=== PATIENT | female | born 1950 | race Caucasian/White ===

== ENCOUNTER 2018-03-21 10:06 | Inpatient (IN) ==
--- NOTE | 2018-03-21 10:30 | ED ---
HPI General Chief Complaint: Dizziness Stated Complaint: left arm pain and dizziness Time Seen by Provider: 03/21/18 10:27 Source: patient Mode of arrival: ambulatory Limitations: no limitations History of Present Illness HPI Narrative: 67-year-old female patient with previous history of hypertension presents to the ER today because this morning she started having pains in the back of her left arm that started on its own and then started having dizziness. She denies chest pains, nausea, shortness of breath, or other symptoms. The left arm pain started on its own, and does not hurt when she moves it. She states that the left arm pain is improving it is now rated a 2 out of 10. Related Data Home Medications Medication Instructions Recorded Confirmed Move Free Joint Health 1 tab PO DAILY 03/21/18 03/21/18 alprazolam 0.25 mg PO DAILY PRN 03/21/18 03/21/18 carvedilol 25 mg PO BID 03/21/18 03/21/18 cyanocobalamin (vitamin B-12) 1,000 mcg PO DAILY 03/21/18 03/21/18 [Vitamin B-12] docusate sodium [Stool Softener] 50 mg PO DAILY 03/21/18 03/21/18 furosemide 20 mg PO DAILY 03/21/18 03/21/18 multivitamin 1 cap PO DAILY 03/21/18 03/21/18 pantoprazole 40 mg PO DAILY 03/21/18 03/21/18 potassium chloride 10 meq PO DAILY 03/21/18 03/21/18 tramadol 50 mg PO BID PRN 03/21/18 03/21/18 Allergies Allergy/AdvReac Type Severity Reaction Status Date / Time lansoprazole Allergy Intermediate RASH Unverified 12/28/16 17:28 bacitracin Allergy Mild RASH Unverified 12/28/16 17:28 gramicidin D Allergy Mild RASH Unverified 12/28/16 17:28 neomycin Allergy Mild RASH Unverified 12/28/16 17:28 polymyxin B Allergy Mild RASH Unverified 12/28/16 17:28 THERMASOL Allergy Unknown Flushing Uncoded 03/21/18 10:14 Review of Systems ROS: all other systems reviewed are negative PMFSH History History Provided By: Patient Medical History Medical History Anxiety (Acute) Chronic pain (Acute) GERD (gastroesophageal reflux disease) (Acute) Hiatal hernia (Acute) H/O: hysterectomy (Acute) HTN (hypertension) (Acute) Surgical History Surgical History H/O breast biopsy (Acute) History of appendectomy (Acute) Social History Social History Substance History: No History of Abuse Smoking Status: Former smoker How Often Do You Have a Drink Containing Alcohol: 4 or more times a week Recent Travel in [facility] within the Last 8 Weeks: No Recent Out of Country Travel within the Last 8 Weeks: No Exam Narrative Exam Narrative: GENERAL: Well-developed elderly female patient currently in mild distress. Awake and oriented x3. SKIN: Focused skin assessment warm/dry. HEAD: Atraumatic. Normocephalic. EYES: Pupils equal and round. No scleral icterus. No injection or drainage. ENT: No nasal bleeding or discharge. Mucous membranes pink and moist. NECK: Trachea midline. No JVD. Supple. CARDIOVASCULAR: Regular rate and rhythm. No murmur appreciated. RESPIRATORY: No accessory muscle use. Clear to auscultation. Breath sounds equal bilaterally. GASTROINTESTINAL: Abdomen soft, non-tender, nondistended. Hepatic and splenic margins not palpable. MUSCULOSKELETAL: No obvious deformities. No clubbing. No cyanosis. No edema. NEUROLOGICAL: Awake and alert. No obvious cranial nerve deficits. Motor grossly within normal limits. Normal speech. PSYCHIATRIC: Appropriate mood and affect; insight and judgment normal. Course Initial Documented Vital Signs Temperature 98.2 F 03/21/18 10:11 Pulse Rate 71 03/21/18 10:11 Respiratory Rate 16 03/21/18 10:11 Blood Pressure 188/91 H 03/21/18 10:11 Pulse Oximetry 96 03/21/18 10:11 Last Documented Vital Signs Temperature 98.2 F 03/21/18 10:11 Pulse Rate 74 03/21/18 10:50 Respiratory Rate 17 03/21/18 10:50 Blood Pressure 156/82 H 03/21/18 10:50 Pulse Oximetry 95 03/21/18 10:50 Medical Decision Making MDM Narrative Medical decision making narrative: EKG did not show any acute ST changes or dysrhythmias. She has no focal neurological deficit on exam. She does have history of hypertension and with age, I am concerned that this could be a cardiac chest pain that is atypically presenting. She was given an additional dose of aspirin in the ER. Patient's blood pressure is fairly elevated as well and that she will need better control. At this point, my plan would be to admit her to chest pain center for further evaluation of her heart. Case is discussed with PA for hospitalist service and they are asking also CAT scan of the brain just to rule out any acute intracranial processes as a cause of the dizziness. Medical Screen Exam Complete: Yes Emergency Medical Condition: Yes Differential Diagnosis Differential Diagnosis: ACS anginal equivalent versus muscular skeletal versus dysrhythmias Lab Data Lab results reviewed: Yes I reviewed the patient's lab results. Result diagrams: 03/21/18 10:28 03/21/18 10:28 Lab Results 03/21/18 03/21/18 Range/Units 10:28 10:28 CBC w Diff Auto diff final WBC 4.0 (4.0-11.0) th/mm3 RBC 4.33 (4.00-5.30) mil/mm3 Hgb 13.7 (11.6-15.3) gm/dL Hct 40.1 (35.0-46.0) % MCV 92.7 (80.0-100.0) fL MCH 31.7 (27.0-34.0) pg MCHC 34.2 (32.0-36.0) % RDW 13.3 (11.6-17.2) % Plt Count 167 (150-450) th/mm3 MPV 7.4 (7.0-11.0) fL Neut % (Auto) 66.4 (16.0-70.0) % Lymph % (Auto) 21.7 (9.0-44.0) % [place] % (Auto) 9.6 H (0.0-8.0) % Eos % (Auto) 1.2 (0.0-4.0) % Baso % (Auto) 1.1 (0.0-2.0) % Neut # (Auto) 2.7 (1.8-7.7) th/mm3 Lymph # (Auto) 0.9 L (1.0-4.8) th/mm3 [place] # (Auto) 0.4 (0.0-0.9) th/mm3 Eos # (Auto) 0.0 (0.0-0.4) th/mm3 Baso # (Auto) 0.0 (0.0-0.2) th/mm3 WBC Differential . Differential Comment . Sodium 139 (136-145) meq/L Potassium 4.0 (3.5-5.1) meq/L Chloride 102 (98-107) meq/L Carbon Dioxide 29.3 (21.0-32.0) meq/L Anion Gap 8 (5-15) meq/L BUN 10 (7-18) mg/dL Creatinine 0.63 (0.50-1.00) mg/dL Estimated GFR Greater than 89 (>89) mL/min Random Glucose 119 H (74-106) mg/dL Calcium 9.1 (8.5-10.1) mg/dL Troponin I Less than 0.02 L (0.02-0.05) ng/mL Imaging Data Attestation: I personally reviewed and interpreted this imaging study as follows : Radiologist's impression: Chest X-Ray 03/21/18 10:27 CONCLUSION: 1. No significant change. No acute cardiopulmonary disease. 2. Moderate to large hiatal hernia again noted. ECG Data Attestation: I personally reviewed and interpreted this ECG as follows: Interpretation: EKG shows NSR, no ST elevation or depression, and no arrhythmias. No significant T-wave inversions. Discharge Plan Discharge Disposition Patient Disposition: 30 Still Patient Discharge Condition Condition: Stable Discharge Details Anticipated Discharge Date: 03/21/18 Diagnosis: Dizziness, Atypical chest pain Physicians Team ED Provider: Angel Luis Shearer Primary Care Provider: Pedro Garcia Rxs /Orders / Referrals /Forms Prescriptions: No Action furosemide 40 mg Tablet 20 mg PO DAILY RF: 0 carvedilol 25 mg Tablet 25 mg PO BID RF: 0 potassium chloride 10 mEq Capsule, Extended Release 10 meq PO DAILY RF: 0 cyanocobalamin (vitamin B-12) [Vitamin B-12] 1,000 mcg Tablet 1,000 mcg PO DAILY RF: 0 docusate sodium [Stool Softener] 50 mg Capsule 50 mg PO DAILY RF: 0 tramadol 50 mg Tablet 50 mg PO BID PRN (Reason: Pain) RF: 0 alprazolam 0.25 mg Tablet 0.25 mg PO DAILY PRN (Reason: Anxiety) RF: 0 pantoprazole 40 mg Tablet,Delayed Release (Dr/Ec) 40 mg PO DAILY RF: 0 multivitamin Capsule 1 cap PO DAILY RF: 0 Move Free Joint Health 1 tab PO DAILY RF: 0 Discharge Interventions Interventions: Vital Signs Last Done: 03/21/18 10:50 Status ED Status: With Doctor
[2018-03-21 10:49] LABS: Baso % (Auto) 1.1 % (0.0-2.0); Eos % (Auto) 1.2 % (0.0-4.0); Hematocrit 40.1 % (35.0-46.0); Hemoglobin 13.7 gm/dL (11.6-15.3); Lymph # (Auto) 0.9 th/mm3 (1.0-4.8); Lymph % (Auto) 21.7 % (9.0-44.0); Mean Corpuscular HGB Conc 34.2 % (32.0-36.0); Mean Corpuscular Hemoglobin 31.7 pg (27.0-34.0); Mean Corpuscular Volume 92.7 fL (80.0-100.0); Mean Platelet Volume 7.4 fL (7.0-11.0); Mono # (Auto) 0.4 th/mm3 (0.0-0.9); Mono % (Auto) 9.6 % (0.0-8.0); Neut # (Auto) 2.7 th/mm3 (1.8-7.7); Neut % (Auto) 66.4 % (16.0-70.0); Platelet Count 167 th/mm3 (150-450); Red Blood Count 4.33 mil/mm3 (4.00-5.30); Red Cell Distribution Width 13.3 % (11.6-17.2)
[2018-03-21 11:01] LABS: Chloride 102 meq/L (98-107); Sodium 139 meq/L (136-145)
[2018-03-21 11:03] LABS: Calcium 9.1 mg/dL (8.5-10.1)
[2018-03-21 11:04] LABS: Anion Gap 8 meq/L (5-15); Blood Urea Nitrogen 10 mg/dL (7-18); Carbon Dioxide 29.3 meq/L (21.0-32.0); Glucose,Random 119 mg/dL (74-106)
[2018-03-21 11:07] LABS: Glomerular Filtration Rate Greater Than 89 mL/min (>89)
--- NOTE | 2018-03-21 11:28 | XR ---
EXAM DATE: 03/21/2018 11:15 AM EST AGE/SEX: 67 years / Female INDICATIONS: Left arm pain, dizziness. CLINICAL DATA: This is the patient's initial encounter. Patient reports that signs and symptoms have been present for 2 days and indicates a pain score of 0/10. MEDICAL/SURGICAL HISTORY: Hypertension. None. COMPARISON: [facility], XR CHEST PA AND LAT, 08/05/2016. . FINDINGS: A single AP view of the chest demonstrates the lungs to be symmetrically aerated without evidence of mass, infiltrate or effusion. There is moderate to large retrocardiac hiatal hernia again noted. The cardiomediastinal contours are unremarkable. Osseous structures are intact. CONCLUSION: 1. No significant change. No acute cardiopulmonary disease. 2. Moderate to large hiatal hernia again noted. Electronically signed by: Delgado Bran MD 03/21/2018 11:27 AM EST
[2018-03-21] MEDS ORDERED: Morphine Inj 4 MG/ML Vial IV.PUSH PRN (11:52)
[2018-03-21] MEDS ORDERED: ALPRAZolam 0.25 MG Tablet PO PRN (11:54)
--- NOTE | 2018-03-21 12:16 | CT ---
EXAM DATE: 03/21/2018 12:12 PM EST AGE/SEX: 67 years / Female INDICATIONS: Dizziness and left arm pain. CLINICAL DATA: This is the patient's initial encounter. Patient reports that signs and symptoms have been present for 1 day and indicates a pain score of 2/10. MEDICAL/SURGICAL HISTORY: Gastroesophageal reflux disease. Hypertension. Hiatal hernia. Hysterect griselda. Appendectomy. RADIATION DOSE: 61.17 CTDI (mGy) [place] [facility] [place]. . TECHNIQUE: CT of the head without contrast. Using automated exposure control and adjustment of the mA and/or kV according to patient size, radiation dose was kept as low as reasonably achievable to ob tain optimal diagnostic quality images. DICOM format image data is available electronically for revi ew and comparison. FINDINGS: There is no evidence for intracranial hemorrhage, mass effect, mass lesions, edema, or extra-axial fl uid collections. The visualized bony structures appear intact. The ventricles are normal size for t he patient's age. There are no signs of acute infarction for technique. CONCLUSION: Unremarkable study. . Electronically signed by: Debby Bustamante MD 03/21/2018 12:15 PM EST
[2018-03-21 15:47] LABS: Creatine Kinase 67 U/L (26-192)
--- NOTE | 2018-03-21 16:03 | P.HP ---
History of Present Illness Primary Care Physician: Pedro Garcia MD Chief Complaint: Left arm pain and dizziness History of Present Illness: 67-year-old female with known history of hypertension, anxiety who presented to the hospital because of left arm pain. Patient states that she was in a normal state of health until this morning when she woke up and had breakfast. At that time she started developing a left arm pain which she described as an ache which was 5/10 on a pain scale. Patient did some research on Amura and she ended up taking 2 low-dose aspirin without any significant relief. Because she is concerned of having a heart attack by what she read on the Internet she got up to come to the hospital and when she got in the car she started developing dizziness where everything was spinning. She did not have any problems ambulating. There is no lightheadedness or dizziness on standing up. By the time the patient came to emergency department she was given more aspirin and the pain completely resolved. She states that it lasted for approximate 15-20 minutes. There was no radiation to the neck, back. She denied any chest pain. Denies any shortness of breath or dyspnea, diaphoresis. The dizziness had completely resolved by the time she got to the ER as well. Given the patient's risk factors, no previous history of any cardiac workup is recommended by ER physician the patient be observed in the hospital for further evaluation and management. - Diagnosis (1) Left arm pain (2) Dizziness Review of Systems All other systems reviewed negative except as stated in HPI Musculoskeletal: Reports radiating pain into limb Neurologic: Reports dizziness PMFSH - History History Provided By: Patient - Medical History Medical History: Medical History (Last Updated 03/21/18 @ 10:42 by Cesia Vela RN) Anxiety Chronic pain GERD (gastroesophageal reflux disease) Hiatal hernia H/O: hysterectomy HTN (hypertension) - Surgical History Surgical History: Surgical History (Last Updated 03/21/18 @ 10:42 by Cesia Vela RN) H/O breast biopsy History of appendectomy - Family History Family History: Family History (Last Updated 03/21/18 @ 16:01 by PABLITO Arriola) Other Family history of dementia Family history of diabetes mellitus Family history of heart disease - Tobacco History Second Hand Smoke Exposure: Yes Smoking Status: Never smoker Number of Pack Years (if former smoker): 18 (Patient quit smoking in 1984) - Alcohol History How Often Do You Have a Drink Containing Alcohol: 4 or more times a week - Substance Use History Substance History: No History of Abuse - Travel History Recent Travel in the [place] Within the Last 8 Weeks: No Recent Travel Out of the Country Within the Last 8 Weeks: No - Immunization History Tetanus Immunization: Unsure Medications and Allergies Active Medications: Active Medications Acetaminophen (Tylenol) 500 mg PO Q4H PRN PRN Reason: HEADACHE Hydrocodone Bitart/Acetaminophen ([place] 7.5/325) 1 tab PO Q4H PRN PRN Reason: PAIN SCALE 1 TO 7 Alprazolam (Xanax) 0.25 mg PO DAILY PRN PRN Reason: Anxiety Aspirin (Aspirin) 325 mg PO DAILY GIRISH Carvedilol (Coreg) 25 mg PO BID GIRISH Furosemide (Lasix) 20 mg PO DAILY GIRISH Morphine Sulfate (Morphine Inj) 2 mg IV.PUSH Q4H PRN PRN Reason: PAIN SCALE 8 TO 10 Nitroglycerin (Nitrostat Sl) 0.4 mg SL Q5M PRN PRN Reason: CHEST PAIN Ondansetron HCl (Zofran Inj) 4 mg IV.PUSH Q6H PRN PRN Reason: NAUSEA Pantoprazole Sodium (Protonix) 40 mg PO DAILY GIRISH Potassium Chloride (Klor-Con 10) 10 meq PO DAILY GIRISH Sodium Chloride (Ns Flush) 2 ml IV.FLUSH BID GIRISH Sodium Chloride (Ns Flush) 2 ml IV.FLUSH PRN PRN PRN Reason: FLUSH AFTER USING IV ACCESS Tramadol HCl (Ultram) 50 mg PO BID PRN PRN Reason: PAIN SCALE 6 TO 10 Allergies Allergy/AdvReac Type Severity Reaction Status Date / Time lansoprazole Allergy Intermediate RASH Unverified 12/28/16 17:28 bacitracin Allergy Mild RASH Unverified 12/28/16 17:28 gramicidin D Allergy Mild RASH Unverified 12/28/16 17:28 neomycin Allergy Mild RASH Unverified 12/28/16 17:28 polymyxin B Allergy Mild RASH Unverified 12/28/16 17:28 THERMASOL Allergy Unknown Flushing Uncoded 03/21/18 10:14 Home Medications Medication Instructions Recorded Confirmed Type Move Free Joint Health 1 tab PO DAILY 03/21/18 03/21/18 History alprazolam 0.25 mg PO DAILY PRN 03/21/18 03/21/18 History carvedilol 25 mg PO BID 03/21/18 03/21/18 History cyanocobalamin (vitamin B-12) 1,000 mcg PO DAILY 03/21/18 03/21/18 History [Vitamin B-12] docusate sodium [Stool Softener] 50 mg PO DAILY 03/21/18 03/21/18 History furosemide 20 mg PO DAILY 03/21/18 03/21/18 History losartan 25 mg PO BID 03/21/18 03/21/18 History multivitamin 1 cap PO DAILY 03/21/18 03/21/18 History pantoprazole 40 mg PO DAILY 03/21/18 03/21/18 History potassium chloride 10 meq PO DAILY 03/21/18 03/21/18 History tramadol 50 mg PO BID PRN 03/21/18 03/21/18 History Exam Vital signs: Vital Signs 03/21/18 10:11 03/21/18 10:25 03/21/18 10:50 Temperature 98.2 F Pulse Rate 71 73 74 Respiratory Rate 16 17 Blood Pressure 188/91 H 156/82 H Pulse Oximetry 96 95 03/21/18 11:45 03/21/18 12:29 03/21/18 14:08 Temperature 96.2 F L Pulse Rate 74 68 Respiratory Rate 20 18 Blood Pressure 174/84 H 166/87 H Pulse Oximetry 95 96 95 03/21/18 14:18 Temperature Pulse Rate 78 Respiratory Rate Blood Pressure Pulse Oximetry Intake & Output 03/20/18 03/21/18 03/21/18 18:59 06:59 18:59 Weight 103.8 kg Other: Weight On Admission 103.8 kg Narrative: GENERAL: Well-developed, well-nourished, in no acute distress. alert and orientated HEENT: Head is normocephalic without any lesions or masses noted. Facial features are symmetric. Eyes: Pupils equal round reactive to light. Extraocular muscles are intact. Conjunctivae were clear. Oropharyngeal: Pharynx without any erythema edema. Tongue is midline without deviation. Buccal mucosa is moist without any masses or lesions NECK: Supple without any masses. Trachea midline no deviation. No JVD, no bruits are appreciated CARDIAC: Regular rhythm, regular rate. S1/S2 are heard. No murmurs gallops or rubs. LUNGS: Clear to auscultation bilaterally. No wheeze, rhonchi or rales. No use of accessory muscles on inspiration or expiration. ABDOMEN: Soft, nontender. Nondistended. Bowel sounds heard in all 4 quadrants. No organomegaly or masses. Negative rebound, negative guarding EXTREMITIES: No edema, pulses are equal bilaterally. No cyanosis or clubbing NEUROLOGY: Mood and affect appear appropriate. Cranial nerves II through XII grossly intact. Muscle strength 5/5 in upper and lower extremities bilaterally. Deep tendon reflexes are 2+ in upper and lower extremities bilaterally. Results - Labs CBC & Chem 7: 03/21/18 10:28 03/21/18 10:28 Labs: Laboratory Results - last 24 hr 03/21/18 03/21/18 03/21/18 10: 10:28 14:40 CBC w Diff Auto diff final WBC 4.0 RBC 4.33 Hgb 13.7 Hct 40.1 MCV 92.7 MCH 31.7 MCHC 34.2 RDW 13.3 Plt Count 167 MPV 7.4 Neut % (Auto) 66.4 Lymph % (Auto) 21.7 [place] % (Auto) 9.6 H Eos % (Auto) 1.2 Baso % (Auto) 1.1 Neut # (Auto) 2.7 Lymph # (Auto) 0.9 L [place] # (Auto) 0.4 Eos # (Auto) 0.0 Baso # (Auto) 0.0 WBC Differential . Differential Comment . Sodium 139 Potassium 4.0 Chloride 102 Carbon Dioxide 29.3 Anion Gap 8 BUN 10 Creatinine 0.63 Estimated GFR Greater than 89 Random Glucose 119 H Calcium 9.1 Total Creatine Kinase 67 Troponin I Less than 0.02 L Less than 0.02 L - Imaging Impressions Chest X-Ray 03/21/18 10:27 CONCLUSION: 1. No significant change. No acute cardiopulmonary disease. 2. Moderate to large hiatal hernia again noted. Head CT 03/21/18 11:50 CONCLUSION: Unremarkable study. . Caprini VTE Risk Assessment Caprini VTE Risk Assessment: Moderate/High Risk (score >= 2) Caprini Risk Assessment Model: Point Value = 1 Point Value = 2 Point Value = 3 Point Value = 5 Age 41-60 Minor surgery BMI > 25 kg/m2 Swollen legs Varicose veins or History of unexplained or recurrent spontaneous Oral contraceptives or hormone replacement Sepsis (< 1 month) Serious lung disease, including pneumonia (< 1 month) Abnormal pulmonary function Acute myocardial infarction Congestive heart failure (< 1 month) History of inflammatory bowel disease Medical patient at bed rest Age 61-74 Arthroscopic surgery Major open surgery (> 45 min) Laparoscopic surgery (> 45 min) Malignancy Confined to bed (> 72 hours) Immobilizing plaster cast Central venous access Age >= 75 History of VTE Family history of VTE Factor V Leiden Prothrombin [id number] Lupus anticoagulant Anticardiolipin antibodies Elevated serum homocysteine Heparin-induced thrombocytopenia Other congenital or acquired thrombophilia Stroke (< 1 month) Elective arthroplasty Hip, pelvis, or leg fracture Acute spinal cord injury (< 1 month) Prophylaxis Regimen: Total Risk Factor Score Risk Level Prophylaxis Regimen 0-1 Low Early ambulation 2 Moderate Order ONE of the following: *Sequential Compression Device (SCD) *Heparin 5000 units SQ BID 3-4 Higher Order ONE of the following medications: *Heparin 5000 units SQ TID *Enoxaparin/Lovenox 40 mg SQ daily (WT < 150 kg, CrCl > 30 mL/min) *Enoxaparin/Lovenox 30 mg SQ daily (WT < 150 kg, CrCl > 10-29 mL/min) *Enoxaparin/Lovenox 30 mg SQ BID (WT < 150 kg, CrCl > 30 mL/min) AND/OR *Sequential Compression Device (SCD) 5 or more Highest Order ONE of the following medications: *Heparin 5000 units SQ TID (Preferred with Epidurals) *Enoxaparin/Lovenox 40 mg SQ daily (WT < 150 kg, CrCl > 30 mL/min) *Enoxaparin/Lovenox 30 mg SQ daily (WT < 150 kg, CrCl > 10-29 mL/min) *Enoxaparin/Lovenox 30 mg SQ BID (WT < 150 kg, CrCl > 30 mL/min) AND *Sequential Compression Device (SCD) Assessment and Plan - Assessment (1) Left arm pain Code(s): M79.602 - Pain in left arm Status: Acute (2) Dizziness Code(s): R42 - Dizziness and giddiness Status: Acute - Plan Left arm pain and dizziness -Possible component of coronary artery disease. Patient does have increased risk factors include age, female without exogenous hormones, history of tobacco use, hypertension, family history of heart disease -Patient has been ruled out for acute coronary event with serial cardiac enzymes that are negative -Serial EKG shows sinus rhythm without any changes -Myocardial perfusion study will be performed to rule out any ischemia -Continue aspirin, nitroglycerin as needed, morphine for pain control -Continue monitor telemetry Hypertension -Home medications were continued DVT prevention -Sequential compression devices
[2018-03-21 18:51] LABS: Creatine Kinase 65 U/L (26-192)
[2018-03-21] MEDS: Acetaminophen 500 MG Tablet PO PRN (19:45)
[2018-03-21] MEDS: Carvedilol 12.5 MG Tablet PO SCH (20:06)
[2018-03-22] MEDS: Acetaminophen 500 MG Tablet PO PRN ×2 (06:43→16:24)
--- NOTE | 2018-03-22 08:34 | P.PN ---
Subjective Interval history: 67-year-old female who is seen and examined today for follow-up on arm pain and dizziness. Patient denies any recurrence of symptoms. Awaiting completion of stress test. Vital signs are stable. Patient remains afebrile. Physical Exam Vital signs: Vital Signs 03/21/18 10:11 03/21/18 10:25 03/21/18 10:50 Temperature 98.2 F Pulse Rate 71 73 74 Respiratory Rate 16 17 Blood Pressure 188/91 H 156/82 H Pulse Oximetry 96 95 03/21/18 11:45 03/21/18 12:29 03/21/18 14:08 Temperature 96.2 F L Pulse Rate 74 68 Respiratory Rate 20 18 Blood Pressure 174/84 H 166/87 H Pulse Oximetry 95 96 95 03/21/18 14:18 03/21/18 16:00 03/21/18 20:00 Temperature 98.6 F 97.2 F L Pulse Rate 78 67 105 H Respiratory Rate 20 18 Blood Pressure 185/80 H 183/81 H Pulse Oximetry 20 L 91 L 03/21/18 20:22 03/22/18 00:00 03/22/18 04:00 Temperature 96.5 F L 96.6 F L Pulse Rate 66 72 Respiratory Rate 18 18 Blood Pressure 152/70 H 152/75 H Pulse Oximetry 93 L 94 L 96 03/22/18 04:02 Temperature Pulse Rate 60 Respiratory Rate Blood Pressure Pulse Oximetry Intake & Output 03/21/18 03/22/18 03/22/18 18:59 06:59 18:59 Intake Total 0 / 0 680 / 680 Output Total 200 / 200 Balance -200 / -200 680 / 680 Weight 103.8 kg 104.8 kg Intake: Oral 0 / 0 680 / 680 Output: Urine 200 / 200 Other: # Voids 2 Weight On Admission 103.8 kg Narrative: GENERAL: Well-developed, well-nourished, in no acute distress. alert and orientated HEENT: Head is normocephalic without any lesions or masses noted. Facial features are symmetric. Eyes: Extraocular muscles are intact. Conjunctivae were clear. NECK: Supple without any masses. Trachea midline no deviation. No JVD, CARDIAC: Regular rhythm, regular rate. S1/S2 are heard. No murmurs gallops or rubs. LUNGS: Clear to auscultation bilaterally. No wheeze, rhonchi or rales. No use of accessory muscles on inspiration or expiration. ABDOMEN: Soft, nontender. Nondistended. Bowel sounds heard in all 4 quadrants. No organomegaly or masses. Negative rebound, negative guarding EXTREMITIES: No edema, pulses are equal bilaterally. No cyanosis or clubbing NEUROLOGY: Mood and affect appear appropriate. Cranial nerves II through XII grossly intact. Moving all extremities, speech is clear Results - Labs CBC & Chem 7: 03/21/18 10:28 03/21/18 10:28 Laboratory Results - last 24 hr 03/21/18 03/21/18 03/21/18 10:28 10:28 14:40 CBC w Diff Auto diff final WBC 4.0 RBC 4.33 Hgb 13.7 Hct 40.1 MCV 92.7 MCH 31.7 MCHC 34.2 RDW 13.3 Plt Count 167 MPV 7.4 Neut % (Auto) 66.4 Lymph % (Auto) 21.7 [place] % (Auto) 9.6 H Eos % (Auto) 1.2 Baso % (Auto) 1.1 Neut # (Auto) 2.7 Lymph # (Auto) 0.9 L [place] # (Auto) 0.4 Eos # (Auto) 0.0 Baso # (Auto) 0.0 WBC Differential . Differential Comment . Sodium 139 Potassium 4.0 Chloride 102 Carbon Dioxide 29.3 Anion Gap 8 BUN 10 Creatinine 0.63 Estimated GFR Greater than 89 Random Glucose 119 H Calcium 9.1 Total Creatine Kinase 67 Troponin I Less than 0.02 L Less than 0.02 L 03/21/18 18:17 CBC w Diff WBC RBC Hgb Hct MCV MCH MCHC RDW Plt Count MPV Neut % (Auto) Lymph % (Auto) [place] % (Auto) Eos % (Auto) Baso % (Auto) Neut # (Auto) Lymph # (Auto) [place] # (Auto) Eos # (Auto) Baso # (Auto) WBC Differential Differential Comment Sodium Potassium Chloride Carbon Dioxide Anion Gap BUN Creatinine Estimated GFR Random Glucose Calcium Total Creatine Kinase 65 Troponin I Less than 0.02 L - Imaging Impressions Chest X-Ray 03/21/18 10:27 CONCLUSION: 1. No significant change. No acute cardiopulmonary disease. 2. Moderate to large hiatal hernia again noted. Head CT 03/21/18 11:50 CONCLUSION: Unremarkable study. . Assessment and Plan - Assessment (1) Left arm pain Code(s): M79.602 - Pain in left arm Status: Acute (2) Dizziness Code(s): R42 - Dizziness and giddiness Status: Acute - Plan Left arm pain and dizziness -Possible component of coronary artery disease. Patient does have increased risk factors include age, female without exogenous hormones, history of tobacco use, hypertension, family history of heart disease -Patient has been ruled out for acute coronary event with serial cardiac enzymes that are negative -Serial EKG shows sinus rhythm without any changes -Myocardial perfusion study was performed and indicated mild focal area of area of stress-induced ischemia in the mid anteroseptal wall, still indicating low risk -Continue aspirin, nitroglycerin as needed, morphine for pain control -Continue monitor telemetry -Patient is on aspirin, beta-dajuan,ARB, will start statin, nitroglycerin as needed -[employer] consulted for further recommendations -[employer] evaluated the patient in recommended medical management. Indicating patient will require at least 2 anti-angina medication. Patient already on beta-dajuan, patient was started on imdur 30 mg daily. -[employer] recommend that patient follow-up in outpatient setting, patient can be discharged Hypertension -Home medications were continued DVT prevention -Sequential compression devices Discharge Planning: Discharge home in stable condition Activity: Ad daniella. Diet: Healthy heart diet Medication per medication reconciliation Follow-up with primary medical doctor in 1 week
[2018-03-22] MEDS: Carvedilol 12.5 MG Tablet PO SCH (08:43)
[2018-03-22] MEDS ORDERED: Furosemide 40 MG Tablet PO SCH (09:00)
[2018-03-22] MEDS ORDERED: Aspirin 325 MG Tablet PO SCH (09:00)
[2018-03-22] MEDS ORDERED: Regadenoson Inj 0.4 MG/5 ML Syringe IV.PUSH ONE (10:15)
--- NOTE | 2018-03-22 11:16 | NM ---
EXAM DATE: 03/22/2018 10:57 AM EST AGE/SEX: 67 years / Female INDICATIONS:Angina. . Chest pain. CLINICAL DATA: This is the patient's initial encounter. Patient reports that signs and symptoms have been present for 1 day and indicates a pain score of 2/10. MEDICAL/SURGICAL HISTORY: Hypertension. Hysterectomy. COMPARISON: [facility] [place], CAROTID ARTERIES, 06/17/2013. . DOSE: 30.1 mCi Tc 99m Myoview at rest 30.1 mCi [id number] at stress 0.4 mg Lexiscan STRESS SYMPTOMS: None. EJECTION FRACTION: >70 % TECHNIQUE: The patient underwent pharmacologic stress with infusion of prescribed dose. Continuous ECG tracing was monitored during stress. Gated SPECT imaging was performed after stress and conventi onal SPECT imaging was performed at rest. The examination was performed on a SPECT/CT scanner, both attenuation and non-corrected datasets were reviewed. FINDINGS: Distribution: The maximum perfused segment at stress is in the inferior wall. Perfusion Study: Focal mild reversible defect in the midanteroseptal wall. Gated Study: There are intact wall motion and wall thickening without hypokinetic or dyskinetic segm ents. The ejection fraction is calculated at >70%. RISK CATEGORY: Low (<1% Annual Motality Rate) CONCLUSION: 1. Mild focal stress-induced ischemia in the mid anteroseptal wall. 2. Intact wall motion with EF of greater than 70%. Electronically signed by: Malik Will MD 03/22/2018 11:15 AM EST
--- NOTE | 2018-03-22 12:21 | TR ---
Date Performed: 03/22/2018 Time Performed: 10:03:23 DOCTOR: Sancho Luna DRUG LIST: CLINICAL HISTORY: REASON FOR TEST: REASON FOR ENDING: OBSERVATION: CONCLUSION: COMMENTS: Lexiscan stress test was performed under standard four minute protocol. Radionuclide was injected one minute prior to ending the test. No electrocardiographic abormalities were present t o suggest ischemia. Nuclear imaging and interpretation are pending.
--- NOTE | 2018-03-22 13:18 | MB ---
cc: Kartik Piña MD DATE: 03/22/2018 REASON FOR CONSULTATION: Slightly abnormal nuclear stress test. HISTORY OF PRESENT ILLNESS: The patient is a pleasant 67-year-old woman who has a history of hypertension, hyperlipidemia, obesity, who presented with left arm and shoulder pain which ruled out for NE and underwent a nuclear stress test which was read as a small focal area of mild anteroseptal ischemia and thus I was consulted. She has no further arm pain and she never had any actual pain in her chest. She is completely asymptomatic and hoping to be discharged home. PAST MEDICAL HISTORY: Chronic pain, GERD, hysterectomy, hypertension. CURRENT MEDICATIONS: 1. Tylenol. 2. Xanax. 3. Aspirin 325 mg daily. 4. Lipitor 20 mg daily. 5. Coreg 25 mg b.i.d. 6. Lasix 20 mg daily. 7. Cozaar 25 mg b.i.d. 8. Protonix. ALLERGIES: MULTIPLE. PLEASE SEE THE CHART. PHYSICAL EXAMINATION: VITAL SIGNS: Afebrile, pulse 71, respiratory rate 19, BP 181/86, saturating 99 on room air. GENERAL: Pleasant, obese woman in no distress. NECK: No JVD. LUNGS: Clear to auscultation bilaterally. CARDIOVASCULAR: Regular rate and rhythm. No murmur appreciated. EXTREMITIES: No edema. LABORATORY DATA: Cardiac enzymes are negative. Sodium 139, potassium 4.0, chloride 102, bicarbonate 29.3, BUN 10, creatinine 0.63, glucose 89. White count 4.0, hematocrit 40.1, platelets 167. DIAGNOSTIC DATA: 1. EKG shows sinus rhythm without acute ST or T-wave changes. 2. Nuclear stress test was read as low risk, small area of mild focal anteroseptal reversibility. IMPRESSION: Abnormal stress test. The patient had a low risk nuclear stress test noting only a small area of focal ischemia, quite possibly artifactual given the patient's obesity. With atypical symptoms that have resolved, a normal EKG and this low risk finding, I believe she can be safely discharged home. She is quite hypertensive, so I think adding a second antianginal medication such as Imdur is a reasonable step, and I will see her in my office. She is instructed to return back to the emergency department should any further chest/arm or shoulder discomfort. Thank you again for the opportunity to participate in this patient's care. MD Timmy Laughlin , 12:56 PM , 01:02 PM
[2018-03-22] MEDS ORDERED: Isosorbide Mononitrate 30 MG ER 24HR Tablet (Imdur) PO ONE (13:36)
[2018-03-22 13:56] VITALS: RESP 20; TEMP 97.2; O2SAT 90
[2018-03-22 15:07] VITALS: BP 134/80; PULSE 87
[2018-03-22 17:52] LABS: Chol/HDL Ratio 2.14 Ratio; HDL Cholesterol 97.5 mg/dL (40.0-60.0)
--- NOTE | 2018-03-22 19:38 | ECG ---
Date Performed: 03/21/2018 Time Performed: 18:16:12 PTAGE: 67 years EKG: Sinus rhythm NORMAL ECG PREVIOUS TRACING : 03/21/2018 14.39 Since the previous tracing, no significant change noted DOCTOR: Saeid Cabrera Interpretating Date/Time 03/22/2018 19:38:05
--- NOTE | 2018-03-22 19:50 | ECG ---
Date Performed: 03/21/2018 Time Performed: 14:39:41 PTAGE: 67 years EKG: Sinus rhythm NORMAL ECG PREVIOUS TRACING : 03/21/2018 10.24 Since the previous tracing, no significant change noted DOCTOR: Saeid Cabrera Interpretating Date/Time 03/22/2018 19:49:43
--- NOTE | 2018-03-22 20:11 | ECG ---
Date Performed: 03/21/2018 Time Performed: 10:24:18 PTAGE: 67 years EKG: Sinus rhythm NORMAL ECG INTERPRETATION BASED ON A DEFAULT AGE OF 40 YEARS PREVIOUS TRACING : 03/23/2016 05.32 Since the previous tracing, no significant change not ed DOCTOR: Saeid Cabrera Interpretating Date/Time 03/22/2018 20:09:24
[2018-03-23] MEDS ORDERED: Isosorbide Mononitrate 30 MG ER 24HR Tablet (Imdur) PO SCH (07:00)
== END 2018-03-22 17:00 | disposition home or self-care (01) ==
LOC: PHEDA 10:06 → PHED 10:06 → PH3 13:00
PROVIDERS: ADMIT Hospitalist; ATTEND Hospitalist